=== PATIENT | female | born 1970 | race Hispanic/Latino ===

== ENCOUNTER → 2018-03-06 | Outpatient (CLI) | payer OTHER ==
--- NOTE | 2018-03-14 08:28 | Diagnostic Imaging Report ---
#[id number] - MGSCRBIL #BILATERAL DIGITAL SCREENING MAMMOGRAM WITH CAD: 03/06/2018 CLINICAL: Routine screening. Comparison is made to exam dated: 12/21/2016 mammogram - [facility]. Current study contains 4 films. The tissue of both breasts is extremely dense, which lowers the sensitivity of mammography. Current study was also evaluated with a Computer Aided Detection (CAD) system. There are benign calcifications in both breasts. No significant masses, calcifications, or other findings are seen in either breast. There has been no significant interval change. IMPRESSION: BENIGN There is no mammographic evidence of malignancy. A 1 year screening mammogram is recommended. The patient will be notified by letter of the results. Reynaldo paul/sam:03/13/2018 15:23:13 Ore Sampler: Yasmin MEIER)(Wilda), [facility] letter sent: Compared to Prior B9 Mammogram BI-RADS: 2 Benign
== END ==
LOC: MAMMO 16:09
PROVIDERS: ATTEND Internal Medicine
DX: Z12.31 Encounter for screening mammogram for malignant neoplasm of breast (principal)
CPT/HCPCS: 77067

== ENCOUNTER → 2018-05-29 | Outpatient (CLI) | payer OTHER ==
--- NOTE | 2018-05-29 15:48 | Diagnostic Imaging Report ---
Exam: Right hip 2 views History: Pain Comparison: None. Findings: No fracture or malalignment. Joint spaces preserved. Calcific tendinopathy at the gluteal insertion on the greater trochanter. Impression: No acute osseous abnormality Calcific tendinopathy at the gluteal insertion on the greater trochanter. Signed by: Dr. Darryl Harrell M.D. on 05/29/2018 3:45 PM
== END ==
LOC: US 14:44
PROVIDERS: ATTEND Internal Medicine
DX: M16.11 Unilateral primary osteoarthritis, right hip (principal); D17.1 Benign lipomatous neoplasm of skin and subcutaneous tissue of trunk

== ENCOUNTER → 2018-06-05 | Outpatient (CLI) | payer OTHER ==
--- NOTE | 2018-06-05 14:05 | Diagnostic Imaging Report ---
Examination: Limited abdominal ultrasound. Clinical indication: Suspected superficial lipomatous lesion. Technique: Transverse and longitudinal sonographic images of the left lateral abdominal wall were obtained along with comparison images of the right lateral abdominal wall. Supplemental color Doppler analysis was performed. Findings: Sonographic evaluation of the area of interest shows no discrete soft tissue lesion or fluid collection. Color Doppler analysis shows no hypervascularity of the area of interest. Impression: No discrete mass lesion or fluid collection in the area of interest. If there is strong clinical concern, MRI with and without contrast may be of benefit for evaluation for soft tissue mass. Signed by: Dr. Joni Perez M.D. on 06/05/2018 2:01 PM
== END ==
LOC: US 12:23
PROVIDERS: ATTEND Internal Medicine
DX: D17.1 Benign lipomatous neoplasm of skin and subcutaneous tissue of trunk (principal); I20.9 Angina pectoris, unspecified; M16.11 Unilateral primary osteoarthritis, right hip
CPT/HCPCS: 76705

== ENCOUNTER → 2020-07-28 | Outpatient (CLI) | payer BC | LOC: MAMMO 08:49 | PROVIDERS: ATTEND Internal Medicine | DX: Z12.31 Encounter for screening mammogram for malignant neoplasm of breast (principal); M85.80 Other specified disorders of bone density and structure, unspecified site | CPT/HCPCS: 77067; 77080 ==

== ENCOUNTER → 2021-08-21 | Outpatient (CLI) | payer BC | LOC: MRI 11:57 | PROVIDERS: ATTEND Internal Medicine | DX: Z12.31 Encounter for screening mammogram for malignant neoplasm of breast (principal); M25.312 Other instability, left shoulder | CPT/HCPCS: 77067 ==